=== PATIENT | female | born 1930 ===

== ENCOUNTER 2017-03-29 17:33 | Emergency (ER) | payer MEDICARE, OTHER ==
[2017-03-29] MEDS ORDERED: Labetalol 5 mg/ml Inj 20ML IVP STA (18:36)
--- NOTE | 2017-03-29 18:56 | ED PDOC ---
HPI: Headache Time Seen by Provider: 03/29/17 18:08 Chief Complaint (Nursing): Headache Chief Complaint (Provider): headache History Per: Patient, Family, Pony [employer] (daughter tech at [employer]) Onset/Duration Of Symptoms: Days (1+ week) Current Symptoms Are (Timing): Still Present Quality: Sharp Preceeding Symptoms: None Associated Symptoms: Nausea, Other (dizzy). denies: Vomiting, Extremity Weakness Additional Complaint(s): 87yo female hx arthtitis, HIV, HTN presents c/o severe headache now ongoing >1 week but worse the last 3 days. Denies fever, change in vision or speech. Does admit to some generalized weakness and neck discomfort c/w prior neck arthritic pains. Taking motrin and tylenol at home wiithout relief. Denies fall or weakness. Past Medical History Reviewed: Historical Data, Nursing Documentation, Vital Signs Vital Signs: Last Vital Signs Temp 98.8 F 03/29/17 17:41 Pulse 67 03/29/17 17:41 Resp 19 03/29/17 17:41 BP 198/69 H 03/29/17 17:41 Pulse Ox 98 03/29/17 17:41 - Medical History PMH: Arthritis, HIV, HTN - Surgical History Surgical History: - Family History Family History: States: Unknown Family Hx - Living Arrangements Living Arrangements: With Family - Social History Current smoker - smoking cessation education provided: No - Allergies Allergies/Adverse Reactions: Allergies Allergy/AdvReac Type Severity Reaction Status Date / Time No Known Allergies Allergy Verified 03/29/17 17:39 Review of Systems ROS Statement: Except As Marked, All Systems Reviewed And Found Negative Constitutional: Negative for: Fever, Chills Cardiovascular: Negative for: Chest Pain, Palpitations Respiratory: Negative for: Cough, Shortness of Breath Gastrointestinal: Negative for: Nausea, Vomiting, Abdominal Pain Genitourinary Female: Negative for: Dysuria Musculoskeletal: Negative for: Neck Pain, Shoulder Pain Skin: Negative for: Rash, Lesions, Jaundice Neurological: Positive for: Weakness, Headache, Dizziness. Negative for: Numbness, Incoordination Physical Exam - Reviewed Nursing Documentation Reviewed: Yes Vital Signs Reviewed: Yes - Physical Exam Appears: Positive for: Well, Non-toxic, No Acute Distress Head Exam: Positive for: ATRAUMATIC, NORMAL INSPECTION, NORMOCEPHALIC Skin: Positive for: Normal Color, Warm, DRY Eye Exam: Positive for: EOMI, Normal appearance, PERRL ENT: Positive for: Normal ENT Inspection, Other (neg thrush) Neck: Positive for: Normal, Painless ROM Cardiovascular/Chest: Positive for: Regular Rate, Rhythm Respiratory: Positive for: CNT, Normal Breath Sounds Pulses-Radial (L): 2+ Pulses-Radial (R): 2+ Gastrointestinal/Abdominal: Positive for: Bowel Sounds, Soft. Negative for: Tenderness, Guarding Back: Positive for: Normal Inspection Extremity: Positive for: Normal ROM Neurologic/Psych: Positive for: Alert, travel attendants II-XII (intact), Oriented. Negative for: Motor/Sensory Deficits - ECG O2 Sat by Pulse Oximetry: 98 Medical Decision Making Medical Decision Making: workup initiated for headache in setting of elevated BP and known HIV. CT brain, labwork, labetolol 10mg IV ordered. Disposition - Clinical Impression Clinical Impression: Headache - Disposition Disposition: Transfer of Care Disposition Time: 18:58 Condition: STABLE Patient Signed Over To: Virgil Alcantar Handoff Comments: pending CT, labwork, re-eval and dispo/diagnosis
[2017-03-29 19:09] LABS: VENOUS BLOOD GAS BASE EXCESS -0.8 mmol/L (0.0-2.0); VENOUS BLOOD GAS PCO2 37 mmHg (40-60); VENOUS BLOOD GAS PO2 27 mm/Hg (30-55); VENOUS BLOOD PH 7.41 (7.32-7.43)
[2017-03-29 19:14] LABS: CALCIUM 9.3 mg/dL (8.4-10.2)
--- NOTE | 2017-03-29 19:32 | CT ---
EXAM: CT Head Without Intravenous Contrast CLINICAL HISTORY: 87 years old, female; Pain; Headache; Headache not specified; Additional info: Headache, hiv. Sent phy. Doc. With request TECHNIQUE: Axial computed tomography images of the head/brain without intravenous contrast. This CT exam was performed using one or more of the following dose reduction techniques: automated exposure control, adjustment of the mA and/or kV according to patient size, and/or use of iterative reconstruction technique. Coronal and sagittal reformatted images were created and reviewed. EXAM DATE/TIME: 03/29/2017 6:35 PM COMPARISON: There are no prior studies for comparison. FINDINGS: Artifacts: Motion artifact degrades image quality. Streak artifact degrades image quality. Brain: There is prominence of sulci gyri and ventricles. There is no midline shift. There is decreased attenuation in periventricular white matter. There are basal ganglia calcifications. There are no focal masses. There are no focal hemorrhages. Raza-white differentiation is visualized. Ventricles: See above. Bones: Cranial vault is intact. Soft tissues: unremarkable Sinuses: There is no acute sinusitis. Ears and mastoids: Middle ears and mastoids are unremarkable. Orbits: Orbital contents are unremarkable. IMPRESSION: Atrophy and small vessel disease, no bleed
--- NOTE | 2017-03-29 19:38 | CT ---
EXAM: CT Cervical Spine Without Intravenous Contrast CLINICAL HISTORY: 87 years old, female; Pain; Neck pain; Additional info: Trauma R/O FX. Sent phy. Doc. With request TECHNIQUE: Axial computed tomography images of the cervical spine without intravenous contrast. This CT exam was performed using one or more of the following dose reduction techniques: automated exposure control, adjustment of the mA and/or kV according to patient size, and/or use of iterative reconstruction technique. Coronal and sagittal reformatted images were created and reviewed. EXAM DATE/TIME: 03/29/2017 6:35 PM COMPARISON: There are no prior studies for comparison. FINDINGS: Vertebrae: There is maintenance of the cervical lordosis. There is no prevertebral soft tissue swelling. There degenerative changes at all levels. There no fractures. There is narrowing of the predental space. There is disc space narrowing at all levels greatest at C4-5 and C5-6. There is anterolisthesis C3 on C4, C4 on C5, C6 on C7 and C7 on T1 degenerative. There is degenerative facet disease greatest at T3-4 and C4-5. There are bulky osteophytes at C5/C6. Spinous processes align in the expected fashion. There is abnormal bony architecture with multiple small lucencies in all visualized osseous structures Discs/spinal canal/neural foramina: See above. Soft tissues: See above. Vasculature: There are vascular calcifications. Thyroid: Thyroid is not optimally demonstrated. Lung apices: Lung apices are clear IMPRESSION: Extensive degenerative change, no fracture; possible metabolic bone disease
[2017-03-29 19:40] LABS: BASO # 0.1 K/uL (0.0-0.2); BASO % 1.9 % (0.0-2.0); EOS # 0.3 K/uL (0.0-0.7); EOS % 7.1 % (0.0-4.0); HEMOGLOBIN 10.4 g/dL (12.0-16.0); LYMPH # 1.2 K/uL (1.0-4.3); LYMPH % 30.4 % (20.0-40.0); MEAN CELL VOLUME 103.3 fl (81.0-99.0); MEAN CORPUSCULAR HEMOGLOBIN 34.9 pg (27.0-31.0); MEAN CORPUSCULAR HGB CONC 33.8 g/dL (33.0-37.0); MEAN PLATELET VOLUME 8.8 fl (7.2-11.7); MONO # 0.5 K/uL (0.0-0.8); NEUT # 1.9 K/uL (1.8-7.0); NEUT % 48.6 % (50.0-75.0); NRBC % 0.1 % (0.0-0.0); RBC 2.97 Mil/uL (3.80-5.20); RED CELL DISTRIBUTION WIDTH 16.3 % (11.5-14.5); WHITE BLOOD COUNT 3.8 K/uL (4.8-10.8)
[2017-03-29 19:47] LABS: INR 1.1 (0.9-1.2); PARTIAL THROMBOPLASTIN TIME 31.5 Seconds (25.6-37.1)
[2017-03-29 21:14] VITALS: BP 193/67; PULSE 98; RESP 18; TEMP 97.9; O2SAT 100
--- NOTE | 2017-03-29 21:17 | ED PDOC ---
- Laboratory Results Result Diagrams: 03/29/17 18:55 03/29/17 18:55 - ECG O2 Sat by Pulse Oximetry: 100 Pulse Ox Interpretation: Normal Medical Decision Making Medical Decision Making: Pt. w/ no acute pathology on CT's, feeling better, still with muscular pains in bilateral trapezius but improved from before, was able to ambulate to bathroom. Told to f/u w/ PMD Dr. Mejia, encouraged NSAID's and topical meds. Return precautions given. Disposition - Clinical Impression Clinical Impression: Headache - POA Present On Arrival: None - Disposition Referrals: Carter Mejia MD [Family Provider] - Disposition: Routine/Home Disposition Time: 21:17 Condition: IMPROVED Prescriptions: Ibuprofen/Famotidine [Duexis 800-26.6 mg Tablet] 1 each PO TID #30 tablet Lidocaine 1 each TP DAILY #10 adh..patch Instructions: Degenerative Disc Disease (ED), Arthritis (ED), General Headache (ED)
== END 2017-03-29 21:43 | disposition home or self-care (01) ==
LOC: H.ER 17:33
DX: R51 Headache (principal); I10 Essential (primary) hypertension; I73.9 Peripheral vascular disease, unspecified
CPT/HCPCS: 70450; 72125; 80053; 82803; 85025; 85610; 85730; 96374; 96375; 99285; J1885; J2765

== ENCOUNTER 2017-04-23 07:46 | Day surgery (SDC) | payer MEDICARE, OTHER ==
[2017-04-23] MEDS ORDERED: Lactated Ringer's 500 ML IV ONE (08:14)
[2017-04-23 08:15] VITALS: TEMP 96.8; O2SAT 100
[2017-04-23] MEDS ORDERED: Etomidate 20 mg/10ml Inj IV ONE (08:17)
[2017-04-23] MEDS ORDERED: Propofol 10 mg/ml Inj (20 ML) ONE (08:17)
[2017-04-23 09:13] VITALS: RESP 16
[2017-04-23 09:16] VITALS: BP 191/44; PULSE 63
== END 2017-04-23 10:30 | disposition home or self-care (01) ==
LOC: H.ENDO 07:46
PROVIDERS: ATTEND Internal Medicine Gastroenterology
DX: K30 Functional dyspepsia (principal); I10 Essential (primary) hypertension; K21.9 Gastro-esophageal reflux disease without esophagitis; Z21 Asymptomatic human immunodeficiency virus [HIV] infection status; F03.90 Unspecified dementia, unspecified severity, without behavioral disturbance, psychotic disturbance, mood disturbance, and anxiety; K44.9 Diaphragmatic hernia without obstruction or gangrene; K26.9 Duodenal ulcer, unspecified as acute or chronic, without hemorrhage or perforation; K25.4 Chronic or unspecified gastric ulcer with hemorrhage; E78.5 Hyperlipidemia, unspecified
CPT/HCPCS: 43235; J2704; J7120

== ENCOUNTER 2018-03-26 15:29 | Observation (INO) | payer MEDICARE, OTHER ==
--- NOTE | 2018-03-26 16:15 | ED PDOC ---
HPI: Abdomen Time Seen by Provider: 03/26/18 15:50 Chief Complaint (Nursing): Abdominal Pain Chief Complaint (Provider): ABD PAIN History Per: Patient (88 Y/O FEMALE H/O HIV HERE WITH COMPLAINT OF WEAKNESS/ DIZZINESS ASSOCIATED WITH JOINT PAIN. FAMILY NOTES PATIENT HAS BEEN CONFUSED X 8 DAYS WILL HALLUCINATIONS. NOTED TO HAVE 2 DAYS OF SLURRED SPEECH/ CONFUSED SPEECH. TODAY SHE APPEARS IMPROVED. NO FEVERS OR CHILLS NOTED.) NIHSS Stroke Scale - Date/Time Evaluation Performed Date Performed: 03/26/18 Time Performed: 16:16 When Was NIHSS Performed: Baseline - How Severe is the Stroke Level of Consciousness: 0=Alert LOC to Questions: 0=Both comments correct LOC to commands: 0=Obeys both correctly Best Gaze: 0=Normal Visual: 0=No visual loss Facial: 0=Normal Motor Arm - Left: 0=No drift Motor Arm - Right: 0=No drift Motor Leg - Left: 0=No drift Motor Leg - Right: 0=No drift Limb Ataxia: 0=Absent Sensory: 0=Normal Best Language: 0=No aphasia Dysarthia: 0=Normal articulation Extinction & Inattention (Neglect): 0=Normal, no object Score: 0 Severity Of Stroke: 0 = No Stroke Past Medical History Reviewed: Historical Data, Nursing Documentation, Vital Signs Vital Signs: Last Vital Signs Temp 98.2 F 03/26/18 17:08 Pulse 57 L 03/26/18 17:08 Resp 15 03/26/18 17:08 BP 163/55 H 03/26/18 17:08 Pulse Ox 100 03/26/18 19:37 - Medical History PMH: Arthritis, HIV, HTN, Hypercholesterolemia - Surgical History Surgical History: - Family History Family History: States: Unknown Family Hx - Home Medications Home Medications: Ambulatory Orders Medication Instructions Recorded Abacavir/Dolutegravir/Lamivudi 1 tab PO DAILY 04/23/17 [Triumeq Tablet] Valsartan/Hydrochlorothiazide 1 tab PO DAILY 04/23/17 [Valsartan-Hctz 320-12.5 mg Tab] Memantine [Namenda] 1 tab 03/26/18 - Allergies Allergies/Adverse Reactions: Allergies Allergy/AdvReac Type Severity Reaction Status Date / Time No Known Allergies Allergy Verified 04/23/17 08:11 Review of Systems ROS Statement: Except As Marked, All Systems Reviewed And Found Negative Physical Exam - Reviewed Nursing Documentation Reviewed: Yes Vital Signs Reviewed: Yes - Physical Exam Appears: Positive for: Well, Non-toxic, No Acute Distress Head Exam: Positive for: ATRAUMATIC, NORMAL INSPECTION, NORMOCEPHALIC Skin: Positive for: Normal Color, Warm, DRY Eye Exam: Positive for: EOMI, Normal appearance, PERRL ENT: Positive for: Normal ENT Inspection Neck: Positive for: Normal, Painless ROM Cardiovascular/Chest: Positive for: Regular Rate, Rhythm Respiratory: Positive for: CNT, Normal Breath Sounds Gastrointestinal/Abdominal: Positive for: Normal Exam, Soft Back: Positive for: Normal Inspection Extremity: Positive for: Normal ROM Neurologic/Psych: Positive for: Alert, Oriented - Laboratory Results Result Diagrams: 03/26/18 16:55 03/26/18 16:55 - ECG ECG Rhythm: Positive for: Sinus Rhythm (nsr 60 bpm; ST wave abnormality v4-v6; no acute changes) O2 Sat by Pulse Oximetry: 100 - Progress ED Course And Treament: HEAD CT: NO ACUTE ABNORMALITY D/W DR. PEREIRA. PATIENT HAS H/O NEWLY ELEVATED GFR. D/W DR. MAYORGA. MRI ORDERED ASA 324 MG X 1 DOSE D/W FAMILY MED RESIDENT. Disposition - Clinical Impression Clinical Impression: Altered mental status, Hallucinations, Slurred speech - Patient ED Disposition Is Patient to be Admitted: Yes - Disposition Disposition Time: 19:41 Condition: FAIR Instructions: Altered Mental Status - Pt Status Changed To: Hospital Disposition Of: Inpatient - Admit Certification Admit to Inpatient:: After my assessment, the patient will require hospitalization for at least two midnights. This is because of the severity of symptoms shown, intensity of services needed, and/or the medical risk in this patient being treated as an outpatient.
--- NOTE | 2018-03-26 16:52 | RAD ---
HISTORY: ROUTINE COMPARISON: 02/17/2018 FINDINGS: LUNGS: No active pulmonary disease. PLEURA: No significant pleural effusion identified, no pneumothorax apparent. CARDIOVASCULAR: Minimal cardiomegaly similarAtherosclerotic vascular calcifications present. . OSSEOUS STRUCTURES: Dextroscoliosis. Thoracic spondylosis. Bilateral advanced shoulder arthrosis. VISUALIZED UPPER ABDOMEN: Normal. OTHER FINDINGS: None. IMPRESSION: No interval pathology noted
[2018-03-26 17:11] LABS: BASO # 0.1 K/uL (0.0-0.2); BASO % 1.4 % (0.0-2.0); EOS # 0.3 K/uL (0.0-0.7); EOS % 6.6 % (0.0-4.0); HEMOGLOBIN 10.7 g/dL (12.0-16.0); LYMPH # 1.5 K/uL (1.0-4.3); LYMPH % 28.4 % (20.0-40.0); MEAN CELL VOLUME 95.8 fl (81.0-99.0); MEAN CORPUSCULAR HEMOGLOBIN 32.1 pg (27.0-31.0); MEAN CORPUSCULAR HGB CONC 33.5 g/dL (33.0-37.0); MEAN PLATELET VOLUME 8.4 fl (7.2-11.7); MONO # 0.6 K/uL (0.0-0.8); MONO % 11.5 % (0.0-10.0); NEUT # 2.7 K/uL (1.8-7.0); NEUT % 52.1 % (50.0-75.0); RBC 3.34 Mil/uL (3.80-5.20); RED CELL DISTRIBUTION WIDTH 15.4 % (11.5-14.5); WHITE BLOOD COUNT 5.2 K/uL (4.8-10.8)
[2018-03-26 17:21] LABS: ALBUMIN 3.4 g/dL (3.5-5.0); CALCIUM 8.7 mg/dL (8.4-10.2)
[2018-03-26 17:32] LABS: TROPONIN I 0.021 ng/mL (0.00-0.120)
--- NOTE | 2018-03-26 17:35 | CT ---
PROCEDURE: CT HEAD WITHOUT CONTRAST. HISTORY: HALLUCINATIONS/DIZZINESS COMPARISON: None available. TECHNIQUE: Axial computed tomography images were obtained through the head/brain without intravenous contrast. Radiation dose: Total exam DLP = 884.96 MGy-cm. This CT exam was performed using one or more of the following dose reduction techniques: Automated exposure control, adjustment of the mA and/or kV according to patient size, and/or use of iterative reconstruction technique. FINDINGS: HEMORRHAGE: No acute parenchymal, subarachnoid nor extra-axial hemorrhage. BRAIN: Minor chronic periventricular white matter ischemic changes are again seen. No obvious parenchymal nor extra-axial mass or collection seen on this noncontrast study. Mild to moderate generalized volume loss. VENTRICLES: No obstructive hydrocephalus. CALVARIUM: Unremarkable. PARANASAL SINUSES: Mild sclerosis and thickening posterolateral brooks both maxillary antra. There is also partial opacification of several MASTOID AIR CELLS: Partial opacification several inferior left-sided mastoid air cells. OTHER FINDINGS: Bilateral ocular lens implants. IMPRESSION: No acute intracranial hemorrhage. Minor chronic periventricular white matter ischemic changes Mild to moderate generalized volume loss.
[2018-03-26 19:04] LABS: SQUAMOUS EPITHIAL 1 /hpf (0-5); URINE BILIRUBIN NEGATIVE (NEGATIVE); URINE BLOOD MODERATE (NEGATIVE); URINE CLARITY CLEAR (Clear); URINE COLOR YELLOW (YELLOW); URINE GLUCOSE (UA) NEG (Normal); URINE LEUKOCYTE ESTERASE NEG Leu/uL (Negative); URINE PROTEIN 30 mg/dL (NEGATIVE); URINE UROBILINOGEN 0.2-1.0 mg/dL (0.2-1.0)
--- NOTE | 2018-03-26 20:40 | CP.PCM.HP ---
Addendum entered and electronically signed by Carter Cutler MD 03/27/18 05:57: Patient has stage 2 pressure ulcer on right buttock on admission Original Note: <Carter Cutler - Last Filed: 03/26/18 20:19> History of Present Illness - History of Present Illness History of Present Illness: CC: AMS HPI: 88 y/o woman w/ pmh of HIV (not AIDS, last CD4 438, viral load <20 2017), HTN, CKD stage 3a, osteoarthritis presents to ED w/ AMS. Patient brought in by family for 1 week of hallucinations, patient was seeing "shadows of mice and bugs running along the floor". Family also reported some slurring speech. Patient reports chronic generalized weakness and fatigue. Son reports patient has improved over the past 1-2 days and is seemingly back to her baseline. Patient denies falls, LOC, or head trauma. Patient denies headaches , chest pain, SOB, dizziness, abdominal pain, nausea, vomiting, diarrhea, dysuria, or fever. ED course: vitals: 98.2 F, 64 bpm, 184/60 mm Hg, resp 15, O2 100% room air CBC: 5.2>10.7/32.0<173 CMP: 143/3.9, 113/21, 28/1.1, glucose 84, AST 34, ALT 32, alk phos 118 troponin 0.0120 Mg 2.3 phos 3.6 UA: negative nitrate, leukocyte esterase, glucose, ketones, bilirubin CT head w/o contrast: no acute intracranial hemorrhage, minor chronic periventricular white matter ischemic changes, mil to moderate generalized volume loss CXR: no active disease given ASA 324 mg PO f/u EKG PMD: Dr. Carter Mejia PMH: HIV (not AIDS, last CD4 438, viral load <20 01/29/2018), HTN, CKD stage 3a , osteoarthritis meds: see med list allergies: NKDA PSH: , catarract surgery Fam: non-contributory SOC: denies smoking, alcohol, and drugs ROS: 12 points assessed and negative unless otherwise reported in HPI Present on Admission - Present on Admission Any Indicators Present on Admission: No History of DVT/PE: No History of Uncontrolled Diabetes: No Urinary Catheter: No Decubitus Ulcer Present: No Review of Systems - Review of Systems All systems: reviewed and no additional remarkable complaints except - Constitutional Constitutional: Weakness. absent: Chills, Fever, Headache - EENT Eyes: absent: Change in Vision - Cardiovascular Cardiovascular: absent: Chest Pain - Respiratory Respiratory: absent: Dyspnea - Gastrointestinal Gastrointestinal: absent: Abdominal Pain, Diarrhea, Nausea, Vomiting - Genitourinary Genitourinary: absent: Dysuria - Integumentary Integumentary: absent: Rash - Neurological Neurological: Weakness. absent: Dizziness, Headaches Past Patient History - Infectious Disease Hx of Infectious Diseases: None - Past Medical History & Family History Past Medical History?: Yes - Past Social History Smoking Status: Never Smoked - CARDIAC Hx Hypercholesterolemia: Yes Hx Hypertension: Yes - PULMONARY Hx Respiratory Disorders: No - NEUROLOGICAL Hx Dementia: Yes - HEENT Hx HEENT Problems: No - RENAL Other/Comment: Patient has pending bilateral renal ultrasound with pcp - ENDOCRINE/METABOLIC Hx Endocrine Disorders: No - HEMATOLOGICAL/ONCOLOGICAL Hx Human Immunodeficiency Virus (HIV): Yes - INTEGUMENTARY Hx Dermatological Problems: No - MUSCULOSKELETAL/RHEUMATOLOGICAL Hx Arthritis: Yes - GASTROINTESTINAL Hx Ulcer: Yes Other/Comment: endoscopy done a few months ago for stomach ulcers - GENITOURINARY/GYNECOLOGICAL Hx Genitourinary Disorders: No - PSYCHIATRIC Hx Psychophysiologic Disorder: No Hx Substance Use: No - SURGICAL HISTORY Hx Surgeries: Yes Hx Section: Yes - ANESTHESIA Hx Anesthesia: Yes Hx Anesthesia Reactions: No Hx Malignant Hyperthermia: No Meds Allergies/Adverse Reactions: Allergies Allergy/AdvReac Type Severity Reaction Status Date / Time No Known Allergies Allergy Verified 04/23/17 08:11 Physical Exam - Constitutional Appears: Non-toxic, No Acute Distress - Head Exam Head Exam: ATRAUMATIC, NORMAL INSPECTION, NORMOCEPHALIC - Eye Exam Eye Exam: Normal appearance - ENT Exam ENT Exam: Mucous Membranes Moist - Neck Exam Neck exam: Positive for: Full Rom. Negative for: Tenderness - Respiratory Exam Respiratory Exam: Clear to Auscultation Bilateral. absent: Accessory Muscle Use , Decreased Breath Sounds, Rales, Rhonchi, Wheezes, Respiratory Distress - Cardiovascular Exam Cardiovascular Exam: REGULAR RHYTHM. absent: Tachycardia - GI/Abdominal Exam GI & Abdominal Exam: Normal Bowel Sounds, Soft. absent: Distended, Tenderness - Extremities Exam Extremities exam: Positive for: pedal pulses present. Negative for: calf tenderness - Neurological Exam Neurological exam: Alert, CN II-XII Intact, Oriented x3 - Skin Skin Exam: Dry, Intact, Normal Color, Warm Results - Vital Signs Recent Vital Signs: Last Vital Signs Temp 98.2 F 03/26/18 17:08 Pulse 57 L 03/26/18 17:08 Resp 15 03/26/18 17:08 BP 163/55 H 03/26/18 17:08 Pulse Ox 100 03/26/18 19:47 - Labs Result Diagrams: 03/26/18 16:55 03/26/18 16:55 Labs: Laboratory Results - last 24 hr 03/26/18 03/26/18 03/26/18 16:55 16:55 18:50 WBC 5.2 RBC 3.34 L Hgb 10.7 L Hct 32.0 L MCV 95.8 D MCH 32.1 H MCHC 33.5 RDW 15.4 H Plt Count 173 MPV 8.4 Neut % (Auto) 52.1 Lymph % (Auto) 28.4 [place] % (Auto) 11.5 H Eos % (Auto) 6.6 H Baso % (Auto) 1.4 Neut # (Auto) 2.7 Lymph # (Auto) 1.5 [place] # (Auto) 0.6 Eos # (Auto) 0.3 Baso # (Auto) 0.1 Sodium 143 Potassium 3.9 Chloride 113 H Carbon Dioxide 21 L Anion Gap 13 BUN 28 H Creatinine 1.1 Est GFR ( Amer) 57 Est GFR (Non-Af Amer) 47 Random Glucose 84 Calcium 8.7 Phosphorus 3.6 Magnesium 2.3 Total Bilirubin 0.5 AST 34 ALT 32 Alkaline Phosphatase 118 Troponin I 0.0210 Total Protein 7.0 Albumin 3.4 L Globulin 3.6 Albumin/Globulin Ratio 1.0 Urine Color Yellow Urine Clarity Clear Urine pH 6.0 Ur Specific [place] 1.011 Urine Protein 30 Urine Glucose (UA) Neg Urine Ketones Negative Urine Blood Moderate Urine Nitrate Negative Urine Bilirubin Negative Urine Urobilinogen 0.2-1.0 Ur Leukocyte Esterase Neg Urine RBC (Auto) 78 H Urine Microscopic WBC 5 Ur Squamous Epith Cells 1 Assessment & Plan - Assessment and Plan (Free Text) Assessment: 88 y/o woman w/ pmh of HIV (not AIDS, last CD4 438, viral load <20 01/29/2018), HTN, CKD stage 3a, osteoarthritis presents to ED w/ AMS Plan: AMS - possibly secondary to TIA less likely infection - hallucinating over 1 week but back to baseline - vitals: 98.2 F, 64 bpm, 184/60 mm Hg, resp 15, O2 100% room air - CBC: 5.2>10.7/32.0<173 - CMP: 143/3.9, 113/21, 28/1.1, glucose 84, AST 34, ALT 32, alk phos 118 - troponin 0.0120 - Mg 2.3 - phos 3.6 - UA: negative nitrate, leukocyte esterase, glucose, ketones, bilirubin - CT head w/o contrast: no acute intracranial hemorrhage, minor chronic periventricular white matter ischemic changes, mil to moderate generalized volume loss - CXR: no active disease - given ASA 324 mg PO - f/u EKG - neurology consult ordered, Dr Cantor contacted and aware - MRI brain w/o contrast ordered - f/u ammonia, folate, B12, CBC, CMP - monitor for acute changes - admit to Tele HIV - last CD4 438, viral load <20 01/29/2018 - c/w home medication anemia - unknown, possibly secondary to CKD - given referral to nephrology by PMD at last visit 03/05/2018 - CBC: 5.2>10.7/32.0<173 - currently stable Weakness - chronic - has home PT Prophylactic measures - DVT: lovenox 40 mg SC daily <Meghann Patel - Last Filed: 03/27/18 07:59> Results - Vital Signs Recent Vital Signs: Last Vital Signs Temp 98.5 F 03/27/18 05:00 Pulse 58 L 03/27/18 05:00 Resp 18 03/27/18 05:00 BP 157/60 H 03/27/18 05:00 Pulse Ox 100 03/27/18 05:00 - Labs Result Diagrams: 03/27/18 05:33 03/27/18 05:33 Labs: Laboratory Results - last 24 hr 03/26/18 03/26/18 03/26/18 16:55 16:55 18:50 WBC 5.2 RBC 3.34 L Hgb 10.7 L Hct 32.0 L MCV 95.8 D MCH 32.1 H MCHC 33.5 RDW 15.4 H Plt Count 173 MPV 8.4 Neut % (Auto) 52.1 Lymph % (Auto) 28.4 [place] % (Auto) 11.5 H Eos % (Auto) 6.6 H Baso % (Auto) 1.4 Neut # (Auto) 2.7 Lymph # (Auto) 1.5 [place] # (Auto) 0.6 Eos # (Auto) 0.3 Baso # (Auto) 0.1 Sodium 143 Potassium 3.9 Chloride 113 H Carbon Dioxide 21 L Anion Gap 13 BUN 28 H Creatinine 1.1 Est GFR ( Amer) 57 Est GFR (Non-Af Amer) 47 Random Glucose 84 Lactic Acid Calcium 8.7 Phosphorus 3.6 Magnesium 2.3 Total Bilirubin 0.5 AST 34 ALT 32 Alkaline Phosphatase 118 Ammonia Troponin I 0.0210 Total Protein 7.0 Albumin 3.4 L Globulin 3.6 Albumin/Globulin Ratio 1.0 Triglycerides Cholesterol LDL Cholesterol Direct HDL Cholesterol Vitamin B12 Urine Color Yellow Urine Clarity Clear Urine pH 6.0 Ur Specific [place] 1.011 Urine Protein 30 Urine Glucose (UA) Neg Urine Ketones Negative Urine Blood Moderate Urine Nitrate Negative Urine Bilirubin Negative Urine Urobilinogen 0.2-1.0 Ur Leukocyte Esterase Neg Urine RBC (Auto) 78 H Urine Microscopic WBC 5 Ur Squamous Epith Cells 1 03/26/18 03/26/18 03/27/18 20:33 20:33 05:33 WBC 4.6 L RBC 3.18 L Hgb 10.3 L Hct 30.4 L MCV 95.7 MCH 32.4 H MCHC 33.8 RDW 15.5 H Plt Count 164 MPV 8.8 Neut % (Auto) 53.0 Lymph % (Auto) 27.1 [place] % (Auto) 11.2 H Eos % (Auto) 7.3 H Baso % (Auto) 1.4 Neut # (Auto) 2.5 Lymph # (Auto) 1.3 [place] # (Auto) 0.5 Eos # (Auto) 0.3 Baso # (Auto) 0.1 Sodium Potassium Chloride Carbon Dioxide Anion Gap BUN Creatinine Est GFR ( Amer) Est GFR (Non-Af Amer) Random Glucose Lactic Acid 0.9 Calcium Phosphorus Magnesium Total Bilirubin AST ALT Alkaline Phosphatase Ammonia 26 Troponin I Total Protein Albumin Globulin Albumin/Globulin Ratio Triglycerides Cholesterol LDL Cholesterol Direct HDL Cholesterol Vitamin B12 Urine Color Urine Clarity Urine pH Ur Specific [place] Urine Protein Urine Glucose (UA) Urine Ketones Urine Blood Urine Nitrate Urine Bilirubin Urine Urobilinogen Ur Leukocyte Esterase Urine RBC (Auto) Urine Microscopic WBC Ur Squamous Epith Cells 03/27/18 05:33 WBC RBC Hgb Hct MCV MCH MCHC RDW Plt Count MPV Neut % (Auto) Lymph % (Auto) [place] % (Auto) Eos % (Auto) Baso % (Auto) Neut # (Auto) Lymph # (Auto) [place] # (Auto) Eos # (Auto) Baso # (Auto) Sodium 145 Potassium 3.8 Chloride 115 H Carbon Dioxide 20 L Anion Gap 14 BUN 30 H Creatinine 1.0 Est GFR ( Amer) > 60 Est GFR (Non-Af Amer) 52 Random Glucose 89 Lactic Acid Calcium 8.4 Phosphorus Magnesium Total Bilirubin 0.4 AST 29 ALT 25 Alkaline Phosphatase 95 Ammonia Troponin I Total Protein 6.1 L Albumin 2.9 L Globulin 3.3 Albumin/Globulin Ratio 0.9 L Triglycerides 71 D Cholesterol 132 LDL Cholesterol Direct 83 HDL Cholesterol 27 L Vitamin B12 520 Urine Color Urine Clarity Urine pH Ur Specific [place] Urine Protein Urine Glucose (UA) Urine Ketones Urine Blood Urine Nitrate Urine Bilirubin Urine Urobilinogen Ur Leukocyte Esterase Urine RBC (Auto) Urine Microscopic WBC Ur Squamous Epith Cells Attending/Attestation - Attestation I have personally seen and examined this patient.: Yes I have fully participated in the care of the patient.: Yes I have reviewed all pertinent clinical information: Yes
[2018-03-27 05:46] LABS: BASO # 0.1 K/uL (0.0-0.2); BASO % 1.4 % (0.0-2.0); EOS # 0.3 K/uL (0.0-0.7); EOS % 7.3 % (0.0-4.0); HEMOGLOBIN 10.3 g/dL (12.0-16.0); LYMPH # 1.3 K/uL (1.0-4.3); LYMPH % 27.1 % (20.0-40.0); MEAN CELL VOLUME 95.7 fl (81.0-99.0); MEAN CORPUSCULAR HEMOGLOBIN 32.4 pg (27.0-31.0); MEAN CORPUSCULAR HGB CONC 33.8 g/dL (33.0-37.0); MEAN PLATELET VOLUME 8.8 fl (7.2-11.7); MONO # 0.5 K/uL (0.0-0.8); MONO % 11.2 % (0.0-10.0); NEUT # 2.5 K/uL (1.8-7.0); NRBC % 0.1 % (0.0-0.0); RBC 3.18 Mil/uL (3.80-5.20); RED CELL DISTRIBUTION WIDTH 15.5 % (11.5-14.5); WHITE BLOOD COUNT 4.6 K/uL (4.8-10.8)
[2018-03-27] MEDS ORDERED: Pneumococcal 23-Valent Vaccine IM ONE (06:00)
[2018-03-27 06:14] LABS: LDL CHOLESTEROL 83 mg/dL (0-129)
[2018-03-27 06:35] LABS: ALB/GLOB RATIO 0.9 (1.0-2.1); ALBUMIN 2.9 g/dL (3.5-5.0); ALT/SGPT 25 U/L (9-52); AST/SGOT 29 U/L (14-36); BLOOD UREA NITROGEN 30 mg/dl (7-17); CALCIUM 8.4 mg/dL (8.4-10.2); GFR AFRICAN-AMERICAN > 60; GFR NON-AFRICAN AMERICAN 52; HDL CHOLESTEROL 27 MG/DL (30-70)
[2018-03-27 07:26] VITALS: BMI 28.8
[2018-03-27] MEDS: Enoxaparin 30 mg Syringe SC SCH (08:30)
[2018-03-27] MEDS ORDERED: Patient's Own Med (Abacavir/Dolutegravir/Lamivudi [Triumeq Tablet] 1 TAB) PO SCH (09:00)
--- NOTE | 2018-03-27 09:26 | CARD ---
APPROVED REPORT EKG Measurement Heart [id number] <Conclusion> Sinus rhythm with premature supraventricular complexes ST & T wave abnormality, consider lateral ischemia Abnormal ECG
--- NOTE | 2018-03-27 11:13 | RAD ---
HISTORY: r/o stones COMPARISON: No prior. FINDINGS: BOWEL: Nonobstructive bowel gas pattern identified. No free intraperitoneal gas. [id number] retained fecal material scattered throughout various large-bowel segments. A mild amount of gas in the gastric viscus. No gross calcification identified overlying the region of the bilateral renal fossae. Phlebolith like calcifications are seen the inferior pelvis soft tissues left greater than right. No large free intrarenal gas collection appreciable. BONES: Levoscoliotic lumbar spinal deformity is appreciate with gross multilevel facet joint and disc degenerative changes identified throughout. Asymmetric advanced left and [id number] right sacroiliac joint degenerative changes are also noted. OTHER FINDINGS: None. IMPRESSION: Nonobstructive bowel gas pattern appreciated.
--- NOTE | 2018-03-27 11:13 | MRI ---
PROCEDURE: MRI BRAIN WITHOUT CONTRAST HISTORY: hallucinations/slurred speech COMPARISON: Noncontrast brain MRI 08/24/[address] 03/26/2018. TECHNIQUE: Multiplanar, multisequence MR images of the brain were obtained without intravenous contrast enhancement. FINDINGS: HEMORRHAGE: None DWI: No evidence of an acute or early subacute infarction. BRAIN PARENCHYMA: Good corticomedullary differentiation is seen. Stable, proportional, diffuse cerebral atrophy and chronic microangiopathy are reiterated. No suspicious extra-axial fluid collection is identified and the midline brain anatomy appears grossly nonfocal as imaged. There is no mass effect throughout. VENTRICLES: Unremarkable. No hydrocephalus. CRANIUM: Unremarkable. ORBITS: Grossly unremarkable. PARANASAL SINUSES/MASTOIDS: Interval left mastoid effusions are identified. VASCULAR SYSTEM: Skull base flow voids intact. OTHER FINDINGS: Persistent, large bilateral temporomandibular joint effusions are appreciated. IMPRESSION: 1. Stable age related neuro degenerative change are identified without acute or subacute brain infarction at this time. There is no mass effect or cortical edema identified in the interval. 2. Incidental left mastoid effusions seen in the interval. 3. Chronic large bilateral TMJ effusions identified incidentally.
--- NOTE | 2018-03-27 12:15 | CP.PCM.PN ---
<Celestina Martinez - Last Filed: 03/27/18 13:34> Subjective - Date & Time of Evaluation Date of Evaluation: 03/27/18 Time of Evaluation: 08:15 - Subjective Subjective: No acute overnight events. Pt states that she is feeling well, and occasionally see's shadows of rats, roaches. Pt is aware that they are not there. Denies headache, chest pain, dyspnea, weakness (change). Denies dysuria, hematuria, urinary frequency. Oriented to person, place, month, date but not sure about year Objective - Vital Signs/Intake and Output Vital Signs (last 24 hours): Temp Pulse Resp BP Pulse Ox 98.1 F 88 20 187/66 H 100 03/27/18 08:13 03/27/18 09:00 03/27/18 08:13 03/27/18 08:29 03/27/18 08:13 - Medications Medications: Current Medications Amlodipine Besylate (Norvasc) 5 mg PO DAILY [facility] Last Admin: 03/27/18 08:29 Dose: 5 mg Enoxaparin Sodium (Lovenox) 30 mg SC DAILY [facility] PRN Reason: Protocol Last Admin: 03/27/18 08:30 Dose: 30 mg Home Med (Abacavir/Dolutegravir/Lamivudi [Triumeq Tablet]) 1 tab PO DAILY [facility] Hydrochlorothiazide (Microzide) 12.5 mg PO DAILY [facility] Last Admin: 03/27/18 08:30 Dose: 12.5 mg Memantine (Namenda) 5 mg PO DAILY [facility] Last Admin: 03/27/18 08:30 Dose: 5 mg Valsartan (Diovan) 320 mg PO DAILY [facility] Last Admin: 03/27/18 08:31 Dose: 320 mg - Labs Labs: 03/27/18 05:33 03/27/18 05:33 - Constitutional Appears: No Acute Distress, Other (mild lisp, pt does not have her dentures in place ) - Head Exam Head Exam: NORMAL INSPECTION - Eye Exam Eye Exam: EOMI, Normal appearance - ENT Exam ENT Exam: Mucous Membranes Moist - Respiratory Exam Respiratory Exam: Clear to Ausculation Bilateral, NORMAL BREATHING PATTERN. absent: Wheezes - Cardiovascular Exam Cardiovascular Exam: REGULAR RHYTHM, +S1, +S2 - GI/Abdominal Exam GI & Abdominal Exam: Soft, Normal Bowel Sounds. absent: Tenderness - Extremities Exam Extremities Exam: absent: Pedal Edema Additional comments: mild swelling and tenderness of the knees, BL Sensory/ Strength intact b/l Unable to appreciate reflexes due to pain - Neurological Exam Neurological Exam: Alert, Awake, CN II-XII Intact Assessment and Plan - Assessment and Plan (Free Text) Assessment: Assessment/Plan: 88 YO Female with PMHx of HIV, HTN, CKD 3A, Osteoarthritis is admitted for AMS, hallucinations. AMS/hallucinations -likely 2/2 to progression of dementia with sun downing -pt remains afebrile, no leukocytosis, VS stable. -UA neg for acute infection -CXR neg -EKG; no acute ST changes -unlikely to be infectious in origin, TIA less likely -CT head and MRI head with chronic changes -Neurology on board, follow up recs HIV -Chronic and stable -last CD4 438, viral load <20 01/29/2018 -c/w home medication Hematuria -UA sig for 78 RBC -asymptomatic at this time -KUB neg -Outpatient follow up with urology Normocytic Anemia -Chronic, stable -likely 2/2 to secondary to CKD -given referral to nephrology by PMD at last visit 03/05/2018 -outpatient follow up Fatigue/Weakness -chronic -B12 wnl, folate pending -PT/OT Dysphagia -as reported by patient -likely age related changes -swallow eval and treat pending Prophylactic measures -lovenox 40 mg SC daily <Meghann Patel - Last Filed: 03/28/18 08:01> Objective - Vital Signs/Intake and Output Vital Signs (last 24 hours): Temp Pulse Resp BP Pulse Ox 98.3 F 65 18 159/67 H 100 03/28/18 04:58 03/28/18 04:58 03/28/18 04:58 03/28/18 04:58 03/28/18 04:58 - Medications Medications: Current Medications Amlodipine Besylate (Norvasc) 5 mg PO DAILY [facility] Last Admin: 03/27/18 08:29 Dose: 5 mg Enoxaparin Sodium (Lovenox) 30 mg SC DAILY [facility] PRN Reason: Protocol Last Admin: 03/27/18 08:30 Dose: 30 mg Home Med (Abacavir/Dolutegravir/Lamivudi [Triumeq Tablet]) 1 tab PO DAILY [facility] Hydrochlorothiazide (Microzide) 12.5 mg PO DAILY [facility] Last Admin: 03/27/18 08:30 Dose: 12.5 mg Memantine (Namenda) 5 mg PO DAILY [facility] Last Admin: 03/27/18 08:30 Dose: 5 mg Quetiapine Fumarate (Seroquel) 25 mg PO HS [facility] Last Admin: 03/27/18 21:44 Dose: 25 mg Valsartan (Diovan) 320 mg PO DAILY [facility] Last Admin: 03/27/18 08:31 Dose: 320 mg - Labs Labs: 03/27/18 05:33 03/27/18 05:33 Attending/Attestation - Attestation I have personally seen and examined this patient.: Yes I have fully participated in the care of the patient.: Yes I have reviewed all pertinent clinical information, including history, physical exam and plan: Yes
[2018-03-27 12:59] LABS: FOLATE 11.1 ng/mL
--- NOTE | 2018-03-27 13:45 | CP.PCM.CON ---
History of Present Illness - History of Present Illness History of Present Illness: Mrs. Sharma is an 88-year-old woman with a past medical history of HIV (not AIDS , last CD4 438, viral load <20 01/29/2018), HTN, CKD, dementia, osteoarthritis presents to ED with changes in mental status that happen the previous day according to the family. In the ED, she did not have any clear encephalopathy. But, the family states the for 1 week she was having hallucinations of shadows of mice and bugs running along the floor. MRI of the brain did not show any acute or subacute infarcts. The patient is currently at baseline. She says that the hallucinations are usually only at night. Review of Systems - Review of Systems All systems: reviewed and no additional remarkable complaints except Past Patient History - Infectious Disease Hx of Infectious Diseases: None - Past Medical History & Family History Past Medical History?: Yes - Past Social History Smoking Status: Never Smoked - CARDIAC Hx Cardiac Disorders: Yes - PULMONARY Hx Respiratory Disorders: No - NEUROLOGICAL Hx Dementia: Yes - HEENT Hx HEENT Problems: No - RENAL Hx Chronic Kidney Disease: Yes Other/Comment: Patient has pending bilateral renal ultrasound with pcp - ENDOCRINE/METABOLIC Hx Endocrine Disorders: No - HEMATOLOGICAL/ONCOLOGICAL Hx AIDS: No Hx Human Immunodeficiency Virus (HIV): Yes - INTEGUMENTARY Hx Dermatological Problems: No - MUSCULOSKELETAL/RHEUMATOLOGICAL Hx Musculoskeletal Disorders: Yes - GASTROINTESTINAL Hx Ulcer: Yes Other/Comment: endoscopy done a few months ago for stomach ulcers - GENITOURINARY/GYNECOLOGICAL Hx Genitourinary Disorders: No - PSYCHIATRIC Hx Psychophysiologic Disorder: Yes - SURGICAL HISTORY Hx Surgeries: Yes Hx Cataract Extraction: Yes Hx Section: Yes (x1) - ANESTHESIA Hx Anesthesia: Yes Hx Anesthesia Reactions: No Hx Malignant Hyperthermia: No Meds Allergies/Adverse Reactions: Allergies Allergy/AdvReac Type Severity Reaction Status Date / Time No Known Allergies Allergy Verified 04/23/17 08:11 - Medications Medications: Current Medications Amlodipine Besylate (Norvasc) 5 mg PO DAILY [facility] Last Admin: 03/27/18 08:29 Dose: 5 mg Enoxaparin Sodium (Lovenox) 30 mg SC DAILY [facility] PRN Reason: Protocol Last Admin: 03/27/18 08:30 Dose: 30 mg Home Med (Abacavir/Dolutegravir/Lamivudi [Triumeq Tablet]) 1 tab PO DAILY [facility] Hydrochlorothiazide (Microzide) 12.5 mg PO DAILY [facility] Last Admin: 03/27/18 08:30 Dose: 12.5 mg Memantine (Namenda) 5 mg PO DAILY [facility] Last Admin: 03/27/18 08:30 Dose: 5 mg Valsartan (Diovan) 320 mg PO DAILY [facility] Last Admin: 03/27/18 08:31 Dose: 320 mg Physical Exam - Neurological Exam Neurological exam: Alert, CN II-XII Intact, Normal Gait, Oriented x3, Reflexes Normal Results - Vital Signs Recent Vital Signs: Last Vital Signs Temp 98.1 F 03/27/18 12:20 Pulse 67 03/27/18 12:20 Resp 20 03/27/18 12:20 BP 152/86 H 03/27/18 12:20 Pulse Ox 100 03/27/18 12:20 - Labs Result Diagrams: 03/27/18 05:33 03/27/18 05:33 Labs: Laboratory Results - last 24 hr 03/26/18 03/26/18 03/26/18 16:55 16:55 18:50 WBC 5.2 RBC 3.34 L Hgb 10.7 L Hct 32.0 L MCV 95.8 D MCH 32.1 H MCHC 33.5 RDW 15.4 H Plt Count 173 MPV 8.4 Neut % (Auto) 52.1 Lymph % (Auto) 28.4 Cameron % (Auto) 11.5 H Eos % (Auto) 6.6 H Baso % (Auto) 1.4 Neut # (Auto) 2.7 Lymph # (Auto) 1.5 Cameron # (Auto) 0.6 Eos # (Auto) 0.3 Baso # (Auto) 0.1 Sodium 143 Potassium 3.9 Chloride 113 H Carbon Dioxide 21 L Anion Gap 13 BUN 28 H Creatinine 1.1 Est GFR ( Amer) 57 Est GFR (Non-Af Amer) 47 Random Glucose 84 Lactic Acid Calcium 8.7 Phosphorus 3.6 Magnesium 2.3 Total Bilirubin 0.5 AST 34 ALT 32 Alkaline Phosphatase 118 Ammonia Troponin I 0.0210 Total Protein 7.0 Albumin 3.4 L Globulin 3.6 Albumin/Globulin Ratio 1.0 Triglycerides Cholesterol LDL Cholesterol Direct HDL Cholesterol Vitamin B12 Folate Urine Color Yellow Urine Clarity Clear Urine pH 6.0 Ur Specific [place] 1.011 Urine Protein 30 Urine Glucose (UA) Neg Urine Ketones Negative Urine Blood Moderate Urine Nitrate Negative Urine Bilirubin Negative Urine Urobilinogen 0.2-1.0 Ur Leukocyte Esterase Neg Urine RBC (Auto) 78 H Urine Microscopic WBC 5 Ur Squamous Epith Cells 1 03/26/18 03/26/18 03/27/18 20:33 20:33 05:33 WBC 4.6 L RBC 3.18 L Hgb 10.3 L Hct 30.4 L MCV 95.7 MCH 32.4 H MCHC 33.8 RDW 15.5 H Plt Count 164 MPV 8.8 Neut % (Auto) 53.0 Lymph % (Auto) 27.1 Cameron % (Auto) 11.2 H Eos % (Auto) 7.3 H Baso % (Auto) 1.4 Neut # (Auto) 2.5 Lymph # (Auto) 1.3 Cameron # (Auto) 0.5 Eos # (Auto) 0.3 Baso # (Auto) 0.1 Sodium Potassium Chloride Carbon Dioxide Anion Gap BUN Creatinine Est GFR ( Amer) Est GFR (Non-Af Amer) Random Glucose Lactic Acid 0.9 Calcium Phosphorus Magnesium Total Bilirubin AST ALT Alkaline Phosphatase Ammonia 26 Troponin I Total Protein Albumin Globulin Albumin/Globulin Ratio Triglycerides Cholesterol LDL Cholesterol Direct HDL Cholesterol Vitamin B12 Folate Urine Color Urine Clarity Urine pH Ur Specific [place] Urine Protein Urine Glucose (UA) Urine Ketones Urine Blood Urine Nitrate Urine Bilirubin Urine Urobilinogen Ur Leukocyte Esterase Urine RBC (Auto) Urine Microscopic WBC Ur Squamous Epith Cells 03/27/18 05:33 WBC RBC Hgb Hct MCV MCH MCHC RDW Plt Count MPV Neut % (Auto) Lymph % (Auto) Cameron % (Auto) Eos % (Auto) Baso % (Auto) Neut # (Auto) Lymph # (Auto) Cameron # (Auto) Eos # (Auto) Baso # (Auto) Sodium 145 Potassium 3.8 Chloride 115 H Carbon Dioxide 20 L Anion Gap 14 BUN 30 H Creatinine 1.0 Est GFR ( Amer) > 60 Est GFR (Non-Af Amer) 52 Random Glucose 89 Lactic Acid Calcium 8.4 Phosphorus Magnesium Total Bilirubin 0.4 AST 29 ALT 25 Alkaline Phosphatase 95 Ammonia Troponin I Total Protein 6.1 L Albumin 2.9 L Globulin 3.3 Albumin/Globulin Ratio 0.9 L Triglycerides 71 D Cholesterol 132 LDL Cholesterol Direct 83 HDL Cholesterol 27 L Vitamin B12 520 Folate 11.1 Urine Color Urine Clarity Urine pH Ur Specific [place] Urine Protein Urine Glucose (UA) Urine Ketones Urine Blood Urine Nitrate Urine Bilirubin Urine Urobilinogen Ur Leukocyte Esterase Urine RBC (Auto) Urine Microscopic WBC Ur Squamous Epith Cells Assessment & Plan - Assessment and Plan (Free Text) Assessment: 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 Hallucinations could be due to sundowning. I recommend seroquel 25 mg QHS. MRI of the brain did not show any concerning findings.
--- NOTE | 2018-03-28 08:34 | CP.PCM.PN ---
Subjective - Date & Time of Evaluation Date of Evaluation: 03/28/18 Time of Evaluation: 08:33 - Subjective Subjective: Ms. Sharma was seen and examined at the bedside. She is alert, oriented with episode of mild hallucination such as seeing mice infront of her. However, she is aware that a physician told her that MRI was okay. She denies any headache, dizziness, lightheadedness, nausea, or vomiting. She is able to follow simple commands such as raising her extremities, her upper extremities have limited extension which is normal with this patient. Family member present at bedside all the time. There was no untoward events overnight. Objective - Vital Signs/Intake and Output Vital Signs (last 24 hours): Temp Pulse Resp BP Pulse Ox 98.3 F 65 18 159/67 H 100 03/28/18 04:58 03/28/18 04:58 03/28/18 04:58 03/28/18 04:58 03/28/18 04:58 - Medications Medications: Current Medications Amlodipine Besylate (Norvasc) 5 mg PO DAILY [facility] Last Admin: 03/27/18 08:29 Dose: 5 mg Enoxaparin Sodium (Lovenox) 30 mg SC DAILY [facility] PRN Reason: Protocol Last Admin: 03/27/18 08:30 Dose: 30 mg Home Med (Abacavir/Dolutegravir/Lamivudi [Triumeq Tablet]) 1 tab PO DAILY [facility] Hydrochlorothiazide (Microzide) 12.5 mg PO DAILY [facility] Last Admin: 03/27/18 08:30 Dose: 12.5 mg Memantine (Namenda) 5 mg PO DAILY [facility] Last Admin: 03/27/18 08:30 Dose: 5 mg Quetiapine Fumarate (Seroquel) 25 mg PO HS [facility] Last Admin: 03/27/18 21:44 Dose: 25 mg Valsartan (Diovan) 320 mg PO DAILY [facility] Last Admin: 03/27/18 08:31 Dose: 320 mg - Labs Labs: 03/27/18 05:33 03/27/18 05:33 - Constitutional Appears: No Acute Distress - Head Exam Head Exam: NORMAL INSPECTION - Eye Exam Pupil Exam: Miosis Additional comments: cloudiness noted around pupils bilaterally. - Neurological Exam Neurological Exam: Alert, Awake Neuro motor strength exam: Left Upper Extremity: 3, Right Upper Extremity: 3, Left Lower Extremity: 2/1, Right Lower Extremity: 2/1 Additional comments: alert, awake, follows commands, sensation is intact. Assessment and Plan (1) Altered mental status Assessment & Plan: Case discussed with Dr. Cha, continue all current medical, physical and occupational therapies. Recommend hydration, keep head of bed elevated at least 30 degrees, provide familiar environment, treat any electrolyte abnormalities. Status: Acute
[2018-03-28 08:36] VITALS: RESP 20; O2SAT 99
--- NOTE | 2018-03-28 08:45 | CP.PCM.DIS ---
<Celestina Martinez - Last Filed: 03/28/18 14:22> Provider - Provider Date of Admission: 03/26/18 19:45 Attending physician: Irene Bajwa MD Consults: Neurology: Dr. Cantor Time Spent in preparation of Discharge (in minutes): 20 Diagnosis - Discharge Diagnosis (1) Hallucinations Status: Chronic (2) Altered mental status Status: Resolved Hospital Course - Lab Results Lab Results: Most Recent Lab Values WBC 4.6 K/uL (4.8-10.8) L 03/27/18 05:33 RBC 3.18 Mil/uL (3.80-5.20) L 03/27/18 05:33 Hgb 10.3 g/dL (12.0-16.0) L 03/27/18 05:33 Hct 30.4 % (34.0-47.0) L 03/27/18 05:33 MCV 95.7 fl (81.0-99.0) 03/27/18 05:33 MCH 32.4 pg (27.0-31.0) H 03/27/18 05:33 MCHC 33.8 g/dL (33.0-37.0) 03/27/18 05:33 RDW 15.5 % (11.5-14.5) H 03/27/18 05:33 Plt Count 164 K/uL (130-400) 03/27/18 05:33 MPV 8.8 fl (7.2-11.7) 03/27/18 05:33 Neut % (Auto) 53.0 % (50.0-75.0) 03/27/18 05:33 Lymph % (Auto) 27.1 % (20.0-40.0) 03/27/18 05:33 [place] % (Auto) 11.2 % (0.0-10.0) H 03/27/18 05:33 Eos % (Auto) 7.3 % (0.0-4.0) H 03/27/18 05:33 Baso % (Auto) 1.4 % (0.0-2.0) 03/27/18 05:33 Neut # (Auto) 2.5 K/uL (1.8-7.0) 03/27/18 05:33 Lymph # (Auto) 1.3 K/uL (1.0-4.3) 03/27/18 05:33 [place] # (Auto) 0.5 K/uL (0.0-0.8) 03/27/18 05:33 Eos # (Auto) 0.3 K/uL (0.0-0.7) 03/27/18 05:33 Baso # (Auto) 0.1 K/uL (0.0-0.2) 03/27/18 05:33 Sodium 145 mmol/l (132-148) 03/27/18 05:33 Potassium 3.8 MMOL/L (3.6-5.0) 03/27/18 05:33 Chloride 115 mmol/L (98-107) H 03/27/18 05:33 Carbon Dioxide 20 mmol/L (22-30) L 03/27/18 05:33 Anion Gap 14 (10-20) 03/27/18 05:33 BUN 30 mg/dl (7-17) H 03/27/18 05:33 Creatinine 1.0 mg/dl (0.7-1.2) 03/27/18 05:33 Est GFR ( Amer) > 60 03/27/18 05:33 Est GFR (Non-Af Amer) 52 03/27/18 05:33 Random Glucose 89 mg/dL (65-105) 03/27/18 05:33 Lactic Acid 0.9 MMOL/L (0.7-2.1) 03/26/18 20:33 Calcium 8.4 mg/dL (8.4-10.2) 03/27/18 05:33 Phosphorus 3.6 mg/dl (2.5-4.5) 03/26/18 16:55 Magnesium 2.3 MG/DL (1.6-2.3) 03/26/18 16:55 Total Bilirubin 0.4 mg/dl (0.2-1.3) 03/27/18 05:33 AST 29 U/L (14-36) 03/27/18 05:33 ALT 25 U/L (9-52) 03/27/18 05:33 Alkaline Phosphatase 95 U/L (38-126) 03/27/18 05:33 Ammonia 26 umo/L (11-51) 03/26/18 20:33 Troponin I 0.0210 ng/mL (0.00-0.120) 03/26/18 16:55 Total Protein 6.1 G/DL (6.3-8.2) L 03/27/18 05:33 Albumin 2.9 g/dL (3.5-5.0) L 03/27/18 05:33 Globulin 3.3 gm/dL (2.2-3.9) 03/27/18 05:33 Albumin/Globulin Ratio 0.9 (1.0-2.1) L 03/27/18 05:33 Triglycerides 71 mg/DL (0-149) D 03/27/18 05:33 Cholesterol 132 mg/dL (0-199) 03/27/18 05:33 LDL Cholesterol Direct 83 mg/dL (0-129) 03/27/18 05:33 HDL Cholesterol 27 MG/DL (30-70) L 03/27/18 05:33 Vitamin B12 520 pg/mL (239-931) 03/27/18 05:33 Folate 11.1 ng/mL 03/27/18 05:33 Urine Color Yellow (YELLOW) 03/26/18 18:50 Urine Clarity Clear (Clear) 03/26/18 18:50 Urine pH 6.0 (5.0-8.0) 03/26/18 18:50 Ur Specific [place] 1.011 (1.003-1.030) 03/26/18 18:50 Urine Protein 30 mg/dL (NEGATIVE) 03/26/18 18:50 Urine Glucose (UA) Neg mg/dL (Normal) 03/26/18 18:50 Urine Ketones Negative mg/dL (NEGATIVE) 03/26/18 18:50 Urine Blood Moderate (NEGATIVE) 03/26/18 18:50 Urine Nitrate Negative (NEGATIVE) 03/26/18 18:50 Urine Bilirubin Negative (NEGATIVE) 03/26/18 18:50 Urine Urobilinogen 0.2-1.0 mg/dL (0.2-1.0) 03/26/18 18:50 Ur Leukocyte Esterase Neg [place]/uL (Negative) 03/26/18 18:50 Urine RBC (Auto) 78 /hpf (0-3) H 03/26/18 18:50 Urine Microscopic WBC 5 /hpf (0-5) 03/26/18 18:50 Ur Squamous Epith Cells 1 /hpf (0-5) 03/26/18 18:50 - Hospital Course Hospital Course: 88 YO Female with PMHx of HIV, HTN, CKD 3A, Osteoarthritis is admitted for AMS, hallucinations. Imaging, labwork have all been negative, CT head with chronic changes. Neurology was consulted, Dr. 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 Per Neurology, pt was started on Seroquel 25mg. Will d/c home today with family and home nursing/ PT services; follow up [facility] with Dr. Fernandez Meds: Seroquel 25mg HS + cont home meds Discharge Exam - Head Exam Head Exam: NORMAL INSPECTION - Eye Exam Eye Exam: EOMI, Normal appearance - ENT Exam ENT Exam: Mucous Membranes Moist - Respiratory Exam Respiratory Exam: Clear to PA & Lateral, NORMAL BREATHING PATTERN. absent: Rales, Wheezes - Cardiovascular Exam Cardiovascular Exam: REGULAR RHYTHM, +S1, +S2 - GI/Abdominal Exam GI & Abdominal Exam: Normal Bowel Sounds, Soft. absent: Distended, Tenderness - Extremities Exam Extremities exam: normal inspection - Back Exam Back exam: NORMAL INSPECTION - Neurological Exam Neurological exam: Alert, Oriented x3 - Psychiatric Exam Psychiatric exam: Normal Affect, Normal Mood - Skin Skin Exam: Dry, Intact, Normal Color, Warm Discharge Plan - Discharge Medications Prescriptions: QUEtiapine [Seroquel] 25 mg PO HS #30 tab - Follow Up Plan Condition: FAIR Disposition: HOME/ ROUTINE Instructions: Altered Mental Status, Altered Mental Status (GEN) Additional Instructions: Follow up in [facility] with Dr. Fernandez; will call pt with apt Meds sent pharmacy <Meghann Patel - Last Filed: 03/28/18 14:58> Provider - Provider Date of Admission: 03/26/18 19:45 Attending physician: Irene Bajwa MD Hospital Course - Lab Results Lab Results: Micro Results 03/26/18 18:50 Urine,Clean Catch Urine Culture - Final Gram Positive Cocci Most Recent Lab Values WBC 4.6 K/uL (4.8-10.8) L 03/27/18 05:33 RBC 3.18 Mil/uL (3.80-5.20) L 03/27/18 05:33 Hgb 10.3 g/dL (12.0-16.0) L 03/27/18 05:33 Hct 30.4 % (34.0-47.0) L 03/27/18 05:33 MCV 95.7 fl (81.0-99.0) 03/27/18 05:33 MCH 32.4 pg (27.0-31.0) H 03/27/18 05:33 MCHC 33.8 g/dL (33.0-37.0) 03/27/18 05:33 RDW 15.5 % (11.5-14.5) H 03/27/18 05:33 Plt Count 164 K/uL (130-400) 03/27/18 05:33 MPV 8.8 fl (7.2-11.7) 03/27/18 05:33 Neut % (Auto) 53.0 % (50.0-75.0) 03/27/18 05:33 Lymph % (Auto) 27.1 % (20.0-40.0) 03/27/18 05:33 [place] % (Auto) 11.2 % (0.0-10.0) H 03/27/18 05:33 Eos % (Auto) 7.3 % (0.0-4.0) H 03/27/18 05:33 Baso % (Auto) 1.4 % (0.0-2.0) 03/27/18 05:33 Neut # (Auto) 2.5 K/uL (1.8-7.0) 03/27/18 05:33 Lymph # (Auto) 1.3 K/uL (1.0-4.3) 03/27/18 05:33 [place] # (Auto) 0.5 K/uL (0.0-0.8) 03/27/18 05:33 Eos # (Auto) 0.3 K/uL (0.0-0.7) 03/27/18 05:33 Baso # (Auto) 0.1 K/uL (0.0-0.2) 03/27/18 05:33 Sodium 145 mmol/l (132-148) 03/27/18 05:33 Potassium 3.8 MMOL/L (3.6-5.0) 03/27/18 05:33 Chloride 115 mmol/L (98-107) H 03/27/18 05:33 Carbon Dioxide 20 mmol/L (22-30) L 03/27/18 05:33 Anion Gap 14 (10-20) 03/27/18 05:33 BUN 30 mg/dl (7-17) H 03/27/18 05:33 Creatinine 1.0 mg/dl (0.7-1.2) 03/27/18 05:33 Est GFR ( Amer) > 60 03/27/18 05:33 Est GFR (Non-Af Amer) 52 03/27/18 05:33 Random Glucose 89 mg/dL (65-105) 03/27/18 05:33 Lactic Acid 0.9 MMOL/L (0.7-2.1) 03/26/18 20:33 Calcium 8.4 mg/dL (8.4-10.2) 03/27/18 05:33 Phosphorus 3.6 mg/dl (2.5-4.5) 03/26/18 16:55 Magnesium 2.3 MG/DL (1.6-2.3) 03/26/18 16:55 Total Bilirubin 0.4 mg/dl (0.2-1.3) 03/27/18 05:33 AST 29 U/L (14-36) 03/27/18 05:33 ALT 25 U/L (9-52) 03/27/18 05:33 Alkaline Phosphatase 95 U/L (38-126) 03/27/18 05:33 Ammonia 26 umo/L (11-51) 03/26/18 20:33 Troponin I 0.0210 ng/mL (0.00-0.120) 03/26/18 16:55 Total Protein 6.1 G/DL (6.3-8.2) L 03/27/18 05:33 Albumin 2.9 g/dL (3.5-5.0) L 03/27/18 05:33 Globulin 3.3 gm/dL (2.2-3.9) 03/27/18 05:33 Albumin/Globulin Ratio 0.9 (1.0-2.1) L 03/27/18 05:33 Triglycerides 71 mg/DL (0-149) D 03/27/18 05:33 Cholesterol 132 mg/dL (0-199) 03/27/18 05:33 LDL Cholesterol Direct 83 mg/dL (0-129) 03/27/18 05:33 HDL Cholesterol 27 MG/DL (30-70) L 03/27/18 05:33 Vitamin B12 520 pg/mL (239-931) 03/27/18 05:33 Folate 11.1 ng/mL 03/27/18 05:33 Urine Color Yellow (YELLOW) 03/26/18 18:50 Urine Clarity Clear (Clear) 03/26/18 18:50 Urine pH 6.0 (5.0-8.0) 03/26/18 18:50 Ur Specific [place] 1.011 (1.003-1.030) 03/26/18 18:50 Urine Protein 30 mg/dL (NEGATIVE) 03/26/18 18:50 Urine Glucose (UA) Neg mg/dL (Normal) 03/26/18 18:50 Urine Ketones Negative mg/dL (NEGATIVE) 03/26/18 18:50 Urine Blood Moderate (NEGATIVE) 03/26/18 18:50 Urine Nitrate Negative (NEGATIVE) 03/26/18 18:50 Urine Bilirubin Negative (NEGATIVE) 03/26/18 18:50 Urine Urobilinogen 0.2-1.0 mg/dL (0.2-1.0) 03/26/18 18:50 Ur Leukocyte Esterase Neg [place]/uL (Negative) 03/26/18 18:50 Urine RBC (Auto) 78 /hpf (0-3) H 03/26/18 18:50 Urine Microscopic WBC 5 /hpf (0-5) 03/26/18 18:50 Ur Squamous Epith Cells 1 /hpf (0-5) 03/26/18 18:50 Attending/Attestation - Attestation I have personally seen and examined this patient.: Yes I have fully participated in the care of the patient.: Yes I have reviewed all pertinent clinical information, including history, physical exam and plan: Yes
[2018-03-28] MEDS: Enoxaparin 30 mg Syringe SC SCH (08:49)
[2018-03-28 12:53] VITALS: BP 156/56; PULSE 60; TEMP 97.5
== END 2018-03-28 16:00 | disposition home or self-care (01) ==
LOC: H.ER 15:29 → H.ERHOLD 19:45 → H.TEL 23:02
PROVIDERS: ADMIT Family Medicine Geriatric Medicine; ATTEND Family Medicine Geriatric Medicine
DX: F05 Delirium due to known physiological condition (principal); F02.80 Dementia in other diseases classified elsewhere, unspecified severity, without behavioral disturbance, psychotic disturbance, mood disturbance, and anxiety; Z21 Asymptomatic human immunodeficiency virus [HIV] infection status; N18.3 Chronic kidney disease, stage 3 (moderate); I12.9 Hypertensive chronic kidney disease with stage 1 through stage 4 chronic kidney disease, or unspecified chronic kidney disease; E78.00 Pure hypercholesterolemia, unspecified; R13.10 Dysphagia, unspecified; D64.9 Anemia, unspecified; M19.90 Unspecified osteoarthritis, unspecified site; Z23 Encounter for immunization; Z87.11 Personal history of peptic ulcer disease
CPT/HCPCS: 36415; 70450; 70551; 71045; 74018; 80053; 80061; 81003; 81025; 82140; 82607; 82746; 83605; 83735; 84100; 84484; 85025; 87086; 90732; 92610; 93005; 96372; 97162; 97166; 97530; 99285; G0009; G0378; G8978; G8979; G8980; G8987; G8988; G8996; G8997; G8998; J1650